=== PATIENT | female | born 1930 | race Caucasian/White ===

== ENCOUNTER 2019-01-18 14:42 | Emergency (ER) | payer MEDICARE ==
--- NOTE | 2019-01-18 15:33 | UC ---
Truncal Trauma HPI - HPI Summary HPI Summary: 88 yo female presents accompanied by daughter. Pt tells me that on 01/13 she fell in her bedroom and impacted her right side on the corner of a nearby night stand. Sustained an abrasion here. Since that time has had severe pain in the area that is worse when taking a deep breath. She is unable to lay flat due to the pain. She did not hit her head or have LOC. She takes plavix for previous CVA/TIA. She mentions that since 01/13 she has had two BMs and both were dark black in color. She states she thinks the right side of her upper abdomen is more swollen/firm compared to left. - History Of Current Complaint Stated Complaint: RIB INJURY Time Seen by Provider: 01/18/19 15:33 Hx Obtained From: Patient Onset/Duration: Sudden Onset Severity Initially: Severe Severity Currently: Severe Pain Intensity: 8 Pain Scale Used: 0-10 Numeric Mechanism Of Injury: Blunt Trauma - Allergies/Home Medications Allergies/Adverse Reactions: Allergies Allergy/AdvReac Type Severity Reaction Status Date / Time aspirin Allergy GI Upset Verified 01/18/19 15:40 Sulfa (Sulfonamide Allergy GI Upset Verified 01/18/19 15:40 Antibiotics) Home Medications: Home Medications Acetaminophen [8Hr Arthritis Pain Relief] 1 tab PO ONCE PRN 01/18/19 [History Confirmed 01/18/19] Clopidogrel Bisulfate [Plavix] 1 tab PO DAILY 01/18/19 [History Confirmed ] Famotidine 40 mg PO DAILY 01/18/19 [History Confirmed 01/18/19] Metformin HCl [Fortamet] 500 mg PO BID 01/18/19 [History Confirmed 01/18/19] Olmesartan Medoxomil 20 mg PO DAILY 01/18/19 [History Confirmed 01/18/19] Rosuvastatin Calcium 20 mg PO DAILY 01/18/19 [History Confirmed 01/18/19] glipiZIDE [Glipizide] 1 tab PO DAILY 01/18/19 [History Confirmed 01/18/19] PMH/Surg Hx/FS Hx/Imm Hx - Additional Past Medical History Additional PMH: TIA Endocrine History: Diabetes - Surgical History Surgical History: Yes Surgery Procedure, Year, and Place: Varicose veins - Family History Known Family History: Positive: Unknown - Social History Occupation: Retired Lives: With Family Alcohol Use: None Substance Use Type: None Smoking Status (MU): Never Smoked Tobacco Review of Systems All Other Systems Reviewed And Are Negative: Yes Constitutional: Positive: Negative Skin: Positive: Negative Respiratory: Positive: Negative Cardiovascular: Positive: Negative Gastrointestinal: Positive: Other - Black stools Genitourinary: Positive: Negative Neurovascular: Positive: Negative Musculoskeletal: Positive: Other: - Right rib pain Neurological: Positive: Negative Psychological: Positive: Negative Physical Exam - Summary Physical Exam Summary: GENERAL: NAD. WDWN. No pain distress. SKIN: Scabbed healing abrasion to right posterior ribs. CHEST: CTAB. No r/r/w. No accessory muscle use. Breathing comfortably and in no distress. CV: RRR. Without m/r/g. Pulses intact. Cap refill <2seconds ABDOMEN: TTP RUQ. No distention. No ecchymosis. MSK: Right ribs: TTP at ~9th-10th midaxillary rib. NEURO: Alert. PSYCH: Age appropriate behavior. Triage Information Reviewed: Yes Vital Signs: Vital Signs: Temp Pulse Resp BP Pulse Ox 97.7 F 71 18 141/66 98 01/18/19 15:34 01/18/19 15:34 01/18/19 15:34 01/18/19 15:34 01/18/19 15:34 Vital Signs Reviewed: Yes Truncal Trauma Course/Dx - Course Course Of Treatment: XR: IMPRESSION: NONDISPLACED FRACTURES OF THE RIGHT LATERAL 9TH AND 10TH RIBS. Discussed results with pt. Given her use of plavix, injury, and black stools since the injury - I recommended pt go to the ER for further evaluation. I am concerned she may have a GI bleed due to her injury. Pt and daughter with her voiced understanding and daughter will drive her now. - Differential Dx/Diagnosis Provider Diagnosis: Rib fracture, Fall, Black stool Discharge - Sign-Out/Discharge Documenting (check all that apply): Patient Departure All imaging exams completed and their final reports reviewed: Yes - Discharge Plan Condition: Stable Disposition: HOME-RECOMMEND TO ED Referrals: Juan Munoz DO [Primary Care Provider] - As Soon As Possible Additional Instructions: Please go to the ER for your rib injury and black stools - Billing Disposition and Condition Condition: STABLE Disposition: Home-Recommend to ED
[2019-01-18 15:51] VITALS: BP 141/66
== END 2019-01-18 16:45 | disposition home health service (06) ==
LOC: UCEAST 14:42
DX: S22.41XA Multiple fractures of ribs, right side, initial encounter for closed fracture (principal); W19.XXXA Unspecified fall, initial encounter; Z86.73 Personal history of transient ischemic attack (TIA), and cerebral infarction without residual deficits; Y92.003 Bedroom of unspecified non-institutional (private) residence as the place of occurrence of the external cause; Z79.01 Long term (current) use of anticoagulants; E11.9 Type 2 diabetes mellitus without complications; Z79.84 Long term (current) use of oral hypoglycemic drugs; I10 Essential (primary) hypertension; R19.5 Other fecal abnormalities; Z79.899 Other long term (current) drug therapy; Z79.02 Long term (current) use of antithrombotics/antiplatelets; R07.81 Pleurodynia
CPT/HCPCS: 99201; G0463

== ENCOUNTER 2019-01-18 17:09 | Emergency (ER) | payer MEDICARE ==
--- NOTE | 2019-01-18 17:42 | ED ---
GI/ HPI - HPI Summary HPI Summary: An 88 y/o female accompanied by daughter presents to [facility] with a chief complaint of black stool today. The patient fell 5 days ago in the morning. She reportedly fell because she was disoriented. She had an x-ray done to day at [facility] which reportedly shows 9th and 10th rib fractures and she was sent to the ED for contrast imaging. The patient is taking Plavix but does not take anything for her pain. At triage the patient rated her pain as an 8/10 in severity. She has never had a rectal exam done before. - History of Current Complaint Chief Complaint: EDGIBleed Time Seen by Provider: 01/18/19 17:27 Stated Complaint: FALL/ BLACK STOOL PER PT DAUGHTER Hx Obtained From: Patient Onset/Duration: Started Days Ago, Still Present Timing: Constant, Lasting Days Severity: Severe Current Severity: Severe Pain Intensity: 8 Location of Pain: Diffuse Pain Characteristics: Unable to describe Associated Signs and Symptoms: Positive: Other: - positive: rib pain. Negative : Fever - Allergy/Home Medications Allergies/Adverse Reactions: Allergies Allergy/AdvReac Type Severity Reaction Status Date / Time aspirin Allergy GI Upset Verified 01/18/19 17:16 Sulfa (Sulfonamide Allergy GI Upset Verified 01/18/19 17:16 Antibiotics) Home Medications: Home Medications Acetaminophen [Acetaminophen ER] 650 mg PO DAILY PRN 01/18/19 [History Confirmed 01/18/19] Clopidogrel TAB* [Plavix TAB*] 75 mg PO DAILY 01/18/19 [History Confirmed ] Famotidine TAB* [Pepcid 20 MG TAB*] 40 mg PO DAILY 01/18/19 [History Confirmed 01/18/19] Olmesartan (NF) [Benicar (NF)] 20 mg PO DAILY 01/18/19 [History Confirmed ] Rosuvastatin (NF) [Crestor] 20 mg PO DAILY 01/18/19 [History Confirmed 01/18/19] glipiZIDE TAB* [Glucotrol TAB*] 10 mg PO DAILY 01/18/19 [History Confirmed 01/18] metFORMIN* [Glucophage 500 MG TAB *] 1,000 mg PO BID 01/18/19 [History Confirmed 01/18/19] PMH/Surg Hx/FS Hx/Imm Hx Endocrine/Hematology History: Reports: Hx Diabetes - type 2 Cardiovascular History: Reports: Hx Hypertension - Surgical History Surgery Procedure, Year, and Place: Varicose veins Infectious Disease History: No Infectious Disease History: Denies: Traveled Outside the [place] in Last 30 Days - Family History Known Family History: Positive: Unknown - Social History Alcohol Use: None Substance Use Type: Reports: None Smoking Status (MU): Never Smoked Tobacco Review of Systems Negative: Fever Positive: Other - positive: black stool Positive: Other - positive: pain in right ribs, 9th and 10th ribs reportedly fractured All Other Systems Reviewed And Are Negative: Yes Physical Exam - Summary Physical Exam Summary: GENERAL: Patient is a well-developed and nourished F who is lying comfortable in the stretcher. Patient is not in any acute respiratory distress. HEAD AND FACE: Normocephalic EYES: PERRLA, EOMI x 2. EARS: Hearing grossly intact. MOUTH: Oropharynx within normal limits. NECK: Supple, trachea is midline, no adenopathy, no JVD, no carotid bruit. CHEST: Symmetric, TTP over right anterior rib area LUNGS: Clear to auscultation bilaterally. No wheezing or crackles. CVS: Regular rate and rhythm, S1 and S2 present, no murmurs or gallops appreciated. ABDOMEN: Soft, non-tender. Bowel sounds are normal. No abnormal abdominal pulsations. EXTREMITIES: Full ROM in all major joints, no edema, no cyanosis or clubbing. NEURO: Alert and oriented x 3. No acute neurological deficits. Speech is normal and follows commands. SKIN: Dry and warm Rectal: stool is brown Triage Information Reviewed: Yes Vital Signs On Initial Exam: Initial Vitals Temp Pulse Resp BP Pulse Ox 97.5 F 75 16 174/83 97 01/18/19 17:11 01/18/19 17:11 01/18/19 17:11 01/18/19 17:11 01/18/19 17:11 Vital Signs Reviewed: Yes Diagnostics - Vital Signs Vital Signs Temp Pulse Resp BP Pulse Ox 01/18/19 17:26 69 148/78 98 01/18/19 17:21 78 97 01/18/19 17:11 97.5 F 75 16 174/83 97 - Laboratory Result Diagrams: 01/18/19 17:37 01/18/19 17:37 Lab Statement: Any lab studies that have been ordered have been reviewed, and results considered in the medical decision making process. - EKG 17:48 Cardiac Rate: NL - 80 bpm EKG Rhythm: Sinus Rhythm Summary of EKG Findings: NSR at 80 bpm, PACs. GIGU Course/Dx - Course Course Of Treatment: An 88 y/o female accompanied by daughter presents to [facility] with a chief complaint of black stool today. The physical exam revealed TTP over right anterior rib area and that her stool is brown. In the ED course the patient was given Morphine IV, Sodium Chloride IV and Zofran IV. EKG at 17:48 showed NSR at 80 bpm, PACs. Stool guiac is negative. This patient will be signed out from Dr. Donohue to Dr. Zarco upon shift change at 19:00 01/18/[address] chest/abdomen/pelvis. - Diagnoses Provider Diagnoses: Fall, Rib pain, Dark stools Discharge - Sign-Out/Discharge Documenting (check all that apply): Sign-Out Patient Signing out patient TO: Babatunde Zarco - pending labs and CT chest/abdomen/pelvis Patient Received Moderate/Deep Sedation with Procedure: No - Discharge Plan Condition: Stable Referrals: Juan Munoz DO [Primary Care Provider] - - Billing Disposition and Condition Condition: STABLE - Attestation Statements Document Initiated by Zahra: Yes Documenting Scribe: Abhay Winter Provider For Whom Zahra is Documenting (Include Credential): David Donohue MD Scribe Attestation: Abhay Hartley scribed for David Donohue MD on 01/18/19 at 1842. Scribe Documentation Reviewed: Yes Provider Attestation: The documentation as recorded by the Abhay beckwith accurately reflects the service I personally performed and the decisions made by me, John Donohue MD Status of Scribe Document: Viewed
[2019-01-18 17:46] LABS: ABS Eosinophils 0.1 10^3/ul (0-0.6); ABS Lymphocytes 1.3 10^3/ul (1.0-4.8); ABS Monocytes 0.4 10^3/ul (0-0.8); ABS Neutrophils 5.9 10^3/ul (1.5-7.7); Eosinophil % 1.2 %; Hematocrit 37 % (35-47); Hemoglobin 12.7 g/dL (12.0-16.0); Lymphocyte % 16.6 %; Mean Corpuscular HGB Conc 34 g/dL (31-36); Mean Corpuscular Hemoglobin 31 pg (27-31); Mean Corpuscular Volume 91 fL (80-97); Mean Platelet Volume 7.3 fL (7.4-10.4); Platelet Count 216 10^3/uL (150-450); Red Blood Count 4.11 10^6 /uL (3.70-4.87); Red Cell Distribution Width 15 % (10-15); White Blood Count 7.8 10^3/uL (3.5-10.8)
[2019-01-18] MEDS ORDERED: Morphine 4 MG/ML VIAL (1 ml) 4 MG/ML VIAL IV ONE (17:49)
[2019-01-18] MEDS ORDERED: NS 0.9% 1000 ML** 1,000 ML IV ONE (17:49)
[2019-01-18] MEDS ORDERED: Ondansetron INJ* 2 MG/ML VIAL IV ONE (17:49)
[2019-01-18 17:54] LABS: Activated Partial Thrombo Time 34.8 seconds (26.0-38.0); INR 0.97 (0.82-1.09)
[2019-01-18 18:03] LABS: Albumin 3.8 g/dL (3.2-5.2); Albumin/Globulin Ratio 1.2 (1-3); BUN/Creatinine Ratio 18.1 (8-20); CRP High Sensitivity 7.54 mg/L (<2.00); Calcium 9.5 mg/dL (8.6-10.3); EGFR African American 68.3 (>60); EGFR Non-African American 56.5 (>60); Globulin 3.2 g/dL (2-4); Potassium 4.1 mmol/L (3.5-5.0); Total Bilirubin 0.5 mg/dL (0.2-1.0)
[2019-01-18 18:05] LABS: Troponin I 0.01 ng/mL (<0.04)
[2019-01-18] MEDS ORDERED: Iodixanol* (CONTRAST) 320 MG/ML 100 ML SDV IV ONE (18:06)
--- NOTE | 2019-01-18 19:26 | ED ---
Progress - Progress Note Progress Note: This patient was signed out from Dr. Donohue upon shift change at 1900 01/18/[address] Chest/A/P. CT Chest/A/P, per radiologist, shows no acute process seen in the abdomen or pelvis. ED Physician has reviewed this report. Course/Dx - Course Course Of Treatment: 88 y/o F presents to [facility] complains of fall five days ago. The patient was signed out from Dr. Donohue upon shift change at [address] Chest/A/P. Labs show sodium 130, chloride 97, glucose 147 , lactic acid 2.2. CT Chest/A/P, per radiologist, shows no acute process seen in the abdomen or pelvis. Patient will be discharged home with instructions to follow up with her primary care provider in 3 days. She was told to return to the ED for new or worsening symptoms. Patient understands and is agreeable to discharge plan. - Diagnoses Provider Diagnoses: Fall Discharge - Sign-Out/Discharge Documenting (check all that apply): Patient Departure - Discharge Patient Received Moderate/Deep Sedation with Procedure: No - Discharge Plan Condition: Stable Disposition: HOME Patient Education Materials: Fall Prevention for Older Adults (ED) Referrals: Juan Munoz DO [Primary Care Provider] - 3 Days Additional Instructions: Follow up with your primary care provider in 3 days. Return to the Emergency Department for new or worsening symptoms. - Attestation Statements Document Initiated by Scribe: Yes Documenting Scribe: Hermelinda Barth Provider For Whom Scribe is Documenting (Include Credential): Babatunde Zarco MD Scribe Attestation: Hermelinda Hartley, monicaibed for Babatunde Zarco MD on 01/18/19 at 1935. Status of Scribe Document: Ready
[2019-01-18 19:54] VITALS: BP 171/75
== END 2019-01-18 19:59 | disposition home or self-care (01) ==
LOC: ED 17:09
DX: R19.5 Other fecal abnormalities (principal); E11.9 Type 2 diabetes mellitus without complications; I10 Essential (primary) hypertension; Z79.84 Long term (current) use of oral hypoglycemic drugs; Z79.02 Long term (current) use of antithrombotics/antiplatelets; Z79.899 Other long term (current) drug therapy; R07.81 Pleurodynia; W19.XXXA Unspecified fall, initial encounter
CPT/HCPCS: 36415; 71260; 74177; 80053; 82272; 83605; 83690; 84484; 85025; 85610; 85730; 86141; 86850; 86900; 86901; 93005; 96361; 96374; 96375; 99283; J2270; J2405; Q9967